=== PATIENT | male | born 1940 | race Caucasian/White ===

== ENCOUNTER 2017-03-05 19:57 | Emergency (ER) | payer OTHER ==
[~2017-03-05] VITALS: Ht 172.7 cm; Wt 72.0 kg
[~2017-03-05 19:57] MED LIST: ACET500C PO; ALPR0.25 PO; ASPI325T PO; ATOR40TA16 PO; CLOP75TA PO; CYAN25003 SL; GABA600T PO; METF500T PO; METO50TA PO; RANI150T PO; ROPI5TAB PO; VENTAER INH; VITA500030 CHEW
[2017-03-05 19:59] VITALS: BP 122/65; PULSE 107; RESP 16; TEMP 98.1; O2SAT 94
--- NOTE | 2017-03-05 20:32 | PD ---
HPI Chief Complaint: Cardiac Complaint Time Seen by Provider: 20:14 Travel History International Travel<30 days: No Contact w/Intl Traveler<30days: No Traveled to known affect area: No History of Present Illness HPI 76 years old male was brought in by his for cardiac arrhythmia. Patient has home health nurse visiting every 2 weeks. Home health nurse found patient to have irregular heart rate ranged from 40s to 120s today at home. Patient states that he has mild headache. Patient denies any visual change. Patient denies any neck pain. Patient denies any chest pain or shortness of breath. Patient denies abdominal pain. Patient denies any focal weakness or numbness of extremity. Patient has history hypertension, diabetes, neuropathy, MD, COPD , hyperlipidemia, CAD status post CABG, aortic stenosis, LVH, chronic renal disease, coronary artery disease. Patient was recently treated with topical cream and clindamycin for right ear infection. Patient is on day #10 of the clindamycin. Patient's states that the redness and the pain on the right ear got better with the medications. PFSH Past Medical History Hx Anticoagulant Therapy: Yes (ASA, PLAVIX) Arthritis: Yes Asthma: Yes Blood Disorders: No Anxiety: Yes Depression: Yes Heart Rhythm Problems: No Cancer: No Cardiac Catheterization: Yes Cardiovascular Problems: Yes (MD, STENTS, CABGX3 ) High Cholesterol: Yes Chest Pain: Yes Congestive Heart Failure: Yes COPD: Yes Cerebrovascular Accident: Yes Diabetes: Yes Endocrine: Yes GERD: No Genitourinary: No Headaches: Yes Hiatal Hernia: No Hypertension: Yes Immune Disorder: No Musculoskeletal: Yes Neurologic: Yes Psychiatric: No Reproductive: No Respiratory: Yes (COPD) Migraines: Yes Seizures: No Sleep Apnea: Yes Thyroid Disease: No Ulcer: No Past Surgical History Abdominal Surgery: No Body Medical Devices: CORONARY STENTS Cardiac Surgery: Yes (angioplasty) Coronary Artery Bypass Graft: Yes Coronary Stent: Yes (X2) Ear Surgery: No Endocrine Surgery: No Eye Surgery: Yes (bilateral catharact removed) Genitourinary Surgery: No Gynecologic Surgery: No Neurologic Surgery: Yes (Blood clot in brain, when pt was teenager, C5 FX REPAIR) Oral Surgery: No Thoracic Surgery: Yes (Triple bypass) Other Surgery: Yes Social History Alcohol Use: No Tobacco Use: No Substance Use: No Allergies-Medications (Allergen,Severity, Reaction): Coded Allergies: No Known Allergies (Verified , 03/05/17) Reported Meds & Prescriptions Reported Meds & Active Scripts Active Bactrim DS (Sulfamethoxazole-Trimethoprim) 800-160 Mg Tab 1 Tab PO BID Clindamycin (Clindamycin HCl) 150 Mg Cap 2 Tab PO Q6H Reported Tramadol (Tramadol HCl) 50 Mg Tab 50 Mg PO Q4H PRN Breo Ellipta Inh (Fluticasone/Vilanterol) 100-25 Mcg/Act Inh 1 Puff INH DAILY Use daily at the same time. Zofran (Ondansetron HCl) 8 Mg Tab 8 Mg PO TID PRN Lansoprazole 30 Mg Capdr 30 Mg PO DAILY Metoprolol Tartrate 25 Mg Tab 25 Mg PO BID Isosorbide Mononitrate 10 Mg Tab 10 Mg PO BID Take 2 doses 7 hours apart. Gabapentin 300 Mg Cap 900 Mg PO TID Folivane-F 125-1 mg (Ferrous Fumarate-Iron Polysacc) 1 Cap Cap 1 Cap PO DAILY Daliresp (Roflumilast) 500 Mcg Tab 500 Mcg PO DAILY Flexeril (Cyclobenzaprine HCl) 10 Mg Tab 10 Mg PO BID Vitamin B-12 (Cyanocobalamin) 2,500 Mcg Subl 2,000 Mcg SL DAILY Vitamin D3 (Cholecalciferol) 5,000 Unit Chew 5,000 Units CHEW DAILY Ropinirole 5 Mg Tab 5 Mg PO HS Acetaminophen 500 Mg Cap 500 Mg PO Q4-6H PRN Ventolin Hfa 18 GM Inh (Albuterol Sulfate) 90 Mcg/Act Aer 2 Puff INH Q6H PRN Ranitidine (Ranitidine HCl) 150 Mg Tab 150 Mg PO DAILY Metformin (Metformin HCl) 500 Mg Tab 750 Mg PO BIDPC With meals Clopidogrel (Clopidogrel Bisulfate) 75 Mg Tab 75 Mg PO DAILY Atorvastatin (Atorvastatin Calcium) 40 Mg Tab 40 Mg PO HS Aspirin 325 Mg Tab 325 Mg PO DAILY Alprazolam 0.25 Mg Tab 0.25 Mg PO Q4H PRN Review of Systems General / Constitutional: No: Fever Eyes: No: Visual changes HENT: No: Headaches Cardiovascular: Positive: Irregular Rhythm, No: Chest Pain or Discomfort Respiratory: No: Shortness of Breath Gastrointestinal: No: Abdominal Pain Genitourinary: No: Dysuria Musculoskeletal: No: Pain Skin: No Rash Neurologic: No: Weakness Psychiatric: No: Depression Endocrine: No: Polydipsia Hematologic/Lymphatic: No: Easy Bruising Physical Exam Narrative GENERAL: Well-nourished, well-developed patient. SKIN: Focused skin assessment warm/dry. HEAD: Normocephalic. EYES: No scleral icterus. No injection or drainage. Patient has some mild redness swelling right earlobe. No induration no discharge. NECK: Supple, trachea midline. No JVD or lymphadenopathy. CARDIOVASCULAR: Regular rate and rhythm without murmurs, gallops, or rubs. RESPIRATORY: Breath sounds equal bilaterally. No accessory muscle use. GASTROINTESTINAL: Abdomen soft, non-tender, nondistended. Gastric tube in place. MUSCULOSKELETAL: No cyanosis, or edema. BACK: Nontender without obvious deformity. No CVA tenderness. Neurologic exam: Patient's awake and alert oriented to place and person. Patient moves all extremities well. No obvious focal neurologic deficit. Data Data Last Documented VS Vital Signs Date Time Temp Pulse Resp B/P Pulse Ox O2 Delivery O2 Flow Rate FiO2 03/05/17 20:42 100 Nasal Cannula 2 03/05/17 19:59 98.1 107 16 122/65 Orders Electrocardiogram (03/05/17 20:25) Complete Blood Count With Diff (03/05/17 20:25) Comprehensive Metabolic Panel (03/05/17 20:25) Creatine Kinase (Cpk) (03/05/17 20:25) Troponin I (03/05/17 20:25) B-Type Natriuretic Peptide (03/05/17 20:25) Prothrombin Time / Inr (Pt) (03/05/17 20:25) Act Partial Throm Time (Ptt) (03/05/17 20:25) Urinalysis - C+S If Indicated (03/05/17 20:25) Thyroid Stimulating Hormone (03/05/17 20:25) Chest, Single Ap (03/05/17 20:25) Iv Access Insert/Monitor (03/05/17 20:25) Ecg Monitoring (03/05/17 20:25) Oximetry (03/05/17 20:25) Labs Laboratory Tests Test 03/05/17 20:35 White Blood Count 10.5 TH/MM3 Red Blood Count 3.97 MIL/MM3 Hemoglobin 11.6 GM/DL Hematocrit 35.5 % Mean Corpuscular Volume 89.5 FL Mean Corpuscular Hemoglobin 29.4 PG Mean Corpuscular Hemoglobin 32.8 % Concent Red Cell Distribution Width 13.6 % Platelet Count 315 TH/MM3 Mean Platelet Volume 7.9 FL Neutrophils (%) (Auto) 73.0 % Lymphocytes (%) (Auto) 16.1 % Monocytes (%) (Auto) 7.5 % Eosinophils (%) (Auto) 2.8 % Basophils (%) (Auto) 0.6 % Neutrophils # (Auto) 7.6 TH/MM3 Lymphocytes # (Auto) 1.7 TH/MM3 Monocytes # (Auto) 0.8 TH/MM3 Eosinophils # (Auto) 0.3 TH/MM3 Basophils # (Auto) 0.1 TH/MM3 CBC Comment DIFF FINAL Differential Comment Prothrombin Time 10.6 SEC Prothromb Time International 1.0 RATIO Ratio Activated Partial 22.2 SEC Thromboplast Time Sodium Level 137 MEQ/L Potassium Level 3.6 MEQ/L Chloride Level 99 MEQ/L Carbon Dioxide Level 26.7 MEQ/L Anion Gap 11 MEQ/L Blood Urea Nitrogen 13 MG/DL Creatinine 0.93 MG/DL Estimat Glomerular Filtration 79 ML/MIN Rate Random Glucose 187 MG/DL Calcium Level 9.1 MG/DL Total Bilirubin 0.2 MG/DL Aspartate Amino Transf 13 U/L (AST/SGOT) Alanine Aminotransferase 14 U/L (ALT/SGPT) Alkaline Phosphatase 89 U/L Total Creatine Kinase 37 U/L Troponin I LESS THAN 0.02 NG/ML Total Protein 7.3 GM/DL Albumin 2.8 GM/DL Thyroid Stimulating Hormone 1.290 uIU/ML 3rd Gen [facility] Medical Decision Making Medical Screen Exam Complete: Yes Emergency Medical Condition: Yes Interpretation(s) 21:40 PM. Last Impressions Chest X-Ray 03/05/172024 Signed Impressions: Service Date/Time: Sunday, March 05, 2017 20:54 - CONCLUSION: No acute disease. Daniel Mcgrath MD 21:40 PM. EKG shows sinus tachycardia rate 100 with frequent PACs. CBC within normal limit. CMP within normal limit. Cardiac enzymes are normal. TSH normal. Differential Diagnosis Differential diagnosis including PACs, PVCs, atrial fibrillation, atrial flutter , bradycardia tachycardia Narrative Course 76 years old male with cardiac arrhythmia, heart rate between 40 and 120 at home today. Patient has heart rate in the 90s in the ED. EKG shows sinus rhythm with PACs. I spoke with Dr. Beth, covering for Dr. Boswell. Advised for the patient to follow-up with him in the office. Diagnosis Primary Impression: Cardiac arrhythmia Qualified Code: I49.1 - Atrial premature depolarization Additional Impression: Cellulitis of right ear Patient Instructions: General Instructions Additional Instructions: Bactrim DS and clindamycin as directed. Follow-up with personal physician and pet caretaker. Return if worse. Med/Other Pt SpecificInfo: Prescription(s) given Scripts Sulfamethoxazole-Trimethoprim (Bactrim DS)800-160 Mg Tab1 Tab PO BID #14 TAB Prov:Jj Holden MD 03/05/17 Clindamycin 150 Mg Cap2 Tab PO Q6H #56 CAP Prov:Jj Holden MD 03/05/17 Disposition: 01 DISCHARGE HOME Condition: Stable Jj Holden MD March 05, 2017 20:32
[2017-03-05 20:42] VITALS: O2SAT 99
[2017-03-05 20:57] LABS: AUTOMATED NEUTROPHIL # 7.6 TH/MM3 (1.8-7.7); BASOPHIL # 0.1 TH/MM3 (0-0.2); BASOPHIL % 0.6 % (0.0-2.0); EOSINOPHIL # 0.3 TH/MM3 (0-0.4); EOSINOPHIL % 2.8 % (0.0-4.0); HEMATOCRIT 35.5 % (39.0-51.0); HEMO FLAGS DIFF FINAL; LYMPH % 16.1 % (9.0-44.0); LYMPHOCYTE # 1.7 TH/MM3 (1.0-4.8); MEAN CELL VOLUME 89.5 FL (80.0-100.0); MEAN CORPUSCULAR HEMOGLOBIN 29.4 PG (27.0-34.0); MEAN CORPUSCULAR HGB CONC 32.8 % (32.0-36.0); MONO % 7.5 % (0.0-8.0); PLATELET COUNT 315 TH/MM3 (150-450); RED BLOOD COUNT 3.97 MIL/MM3 (4.50-5.90); RED CELL DISTRIBUTION WIDTH 13.6 % (11.6-17.2); WHITE BLOOD COUNT 10.5 TH/MM3 (4.0-11.0)
[2017-03-05] MEDS ORDERED: ZOFR8TAB PO (20:59)
[2017-03-05] MEDS ORDERED: FLUT1INH INH (20:59)
[2017-03-05] MEDS ORDERED: METO25TA3 PO (20:59)
[2017-03-05] MEDS ORDERED: FOLICAP PO (20:59)
[2017-03-05] MEDS ORDERED: CYCL1TAB29 PO (20:59)
[2017-03-05] MEDS ORDERED: ISOS10TA3 PO (20:59)
[2017-03-05] MEDS ORDERED: ROFL1TAB2 PO (20:59)
[2017-03-05] MEDS ORDERED: GABA300C5 PO (20:59)
[2017-03-05] MEDS ORDERED: LANS30CA PO (20:59)
[2017-03-05] MEDS ORDERED: TRAM50TA PO (20:59)
[2017-03-05 21:06] LABS: APTT (PATIENT) 22.2 SEC (24.3-30.1); PROTHROMBIN TIME - PATIENT 10.6 SEC (9.8-11.6)
[2017-03-05 21:20] LABS: ANION GAP 11 MEQ/L (5-15); AST (GOT) 13 U/L (15-37); BICARBONATE 26.7 MEQ/L (21.0-32.0); BLOOD UREA NITROGEN 13 MG/DL (7-18); CHLORIDE 99 MEQ/L (98-107); GLOMERULAR FILTRATION RATE 79 ML/MIN (>89); POTASSIUM 3.6 MEQ/L (3.5-5.1); SODIUM (NA) 137 MEQ/L (136-145)
--- NOTE | 2017-03-05 21:25 | RADRPT ---
EXAM DATE/TIME: 03/05/2017 20:54 [facility] COMPARISON: CHEST SINGLE AP, October 11, 2015, 9:15. INDICATIONS : Short of breath. MEDICAL HISTORY : Stroke. Hypertension. Myocardial infarction. SURGICAL HISTORY : Coronary stent ENCOUNTER: Initial ACUITY: 1 day PAIN SCORE: 0/10 LOCATION: Bilateral chest FINDINGS: A single view of the chest demonstrates the lungs to be symmetrically aerated without evidence of mas s, infiltrate or effusion. The cardiomediastinal contours are unremarkable. Osseous structures are intact. Sternotomy wires are noted. CONCLUSION: No acute disease. Daniel Mcgrath MD on March 05, 2017 at 21:17 Board Certified Radiologist. This report was verified electronically.
[2017-03-05 21:31] LABS: ALKALINE PHOSPHATASE 89 U/L (45-117); ALT (GPT) 14 U/L (12-78); TOTAL BILIRUBIN ADULT 0.2 MG/DL (0.2-1.0)
[2017-03-05 21:44] LABS: CREATINE KINASE 37 U/L (39-308)
[2017-03-05] MEDS ORDERED: CLIN1CAP5 PO (22:02)
[2017-03-05] MEDS ORDERED: BACT800T5 PO (22:02)
[2017-03-05 22:38] VITALS: BP 168/79
--- NOTE | 2017-03-06 05:44 | EKG ---
Date Performed: 03/05/2017 Time Performed: 21:05:16 PTAGE: 76 years EKG: SINUS TACHYCARDIA WITH FREQUENT SUPRAVENTRICULAR PREMATURE COMPLEXES RIGHT BUNDLE BRANCH BL OCK ABNORMAL ECG PREVIOUS TRACING : 10/11/2015 01.53 Compared to the previous tracing frequent PACs present DOCTOR: Alecia Koch Interpretating Date/Time 03/06/2017 05:43:29
== END 2017-03-05 22:40 | disposition home or self-care (01) ==
LOC: NEPC 19:57
DX: I49.9 Cardiac arrhythmia, unspecified (principal); H60.11 Cellulitis of right external ear; R94.31 Abnormal electrocardiogram [ECG] [EKG]; I10 Essential (primary) hypertension; E11.9 Type 2 diabetes mellitus without complications; J45.909 Unspecified asthma, uncomplicated; Z79.01 Long term (current) use of anticoagulants
CPT/HCPCS: 71010; 80053; 82550; 83880; 84443; 84484; 85025; 85610; 85730; 93005